=== PATIENT | female | born 1985 | race Caucasian/White ===

== ENCOUNTER 2020-01-19 09:19 | Emergency (ER) | payer MEDICAID ==
[~2020-01-19] VITALS: Ht 149.9 cm; Wt 80.3 kg
[2020-01-19 09:23] VITALS: BP 122/68
--- NOTE | 2020-01-19 09:30 | NUR ---
PT AMBULATED TO ER BED 12
--- NOTE | 2020-01-19 09:30 | NUR ---
34/F c/o suprapubic & left pelvic pain x 1 days and vaginal spotting x 1 day. , approx 5 weeks . States the pain is similar to the pain she's had before from left ovarian cyst. Crampy, 4/10 at this time, constant since it started this morning. Pt states she has never had vaginal spotting during which caused her to be concerned. [place] spots on toilet paper after wiping but no blood in toilet bowel. Has not had to use any pads. Hx- left ovarian cyst
--- NOTE | 2020-01-19 09:34 | NUR ---
rag production worker at bedside for blood draw.
--- NOTE | 2020-01-19 09:35 | NUR ---
urine sample handed to mannequin mounter
--- NOTE | 2020-01-19 09:36 | NUR ---
Dr. Lorenzo evaluating pt at bedside
--- NOTE | 2020-01-19 09:43 | NUR ---
U/S tech at bedside
[2020-01-19 09:47] LABS: BASOPHILS % (AUTO) 0.4 % (0.0-2.0); EOSINOPHILS # (AUTO) 0.1 K/uL (0-0.4); EOSINOPHILS % (AUTO) 0.8 % (0.0-4.0); HEMATOCRIT 36.6 % (36-48); HEMOGLOBIN 12.2 g/dL (12.0-16.0); LYMPHOCYTES # (AUTO) 1.8 K/uL (2.5-16.5); MEAN CORPUSCULAR HEMOGLOBIN 30 pg (27-31); MEAN CORPUSCULAR HGB CONC 33 g/dL (33-37); MEAN CORPUSCULAR VOLUME 89.3 fL (80-94); MONOCYTES # (AUTO) 0.3 K/uL (0.8-1.0); MONOCYTES % (AUTO) 5.1 % (1.7-9.3); NEUTROPHILS # (AUTO) 4.5 K/uL (1.8-7.7); NEUTROPHILS % (AUTO) 66.7 % (42.2-75.2); PLATELET COUNT (AUTO) 206 K/uL (140-450); RED CELL DISTRIBUTION WIDTH 14.5 % (11.6-13.7); WHITE BLOOD COUNT (AUTO) 6.8 K/uL (4.8-10.8)
[2020-01-19 10:04] LABS: ANION GAP 12.8 (8-16); CARBON DIOXIDE 26.4 mmol/L (21-32); CREATININE 0.6 mg/dL (0.6-1.3); POTASSIUM 4.2 mmol/L (3.5-5.1)
[2020-01-19 10:15] LABS: BILIRUBIN,URINE NEGATIVE (NEGATIVE); COLOR,URINE YELLOW (YELLOW); LEUKOCYTE ESTERASE ,URINE TRACE (NEGATIVE); NITRITE, URINE NEGATIVE (NEGATIVE); PH,URINE 5.5 (5.0-9.0); UGLUCOSE NEGATIVE (NEGATIVE)
[2020-01-19 10:18] LABS: APPEARANCE,URINE SLIGHTLY HAZY (CLEAR)
[2020-01-19 10:20] LABS: BLOOD, URINE 1+ (NEGATIVE); RBC,URINE 0-5 /HPF (0-5); WBC,URINE 0-5 /HPF (0-5)
[2020-01-19 10:38] VITALS: BP 118/65
== END 2020-01-19 10:38 | disposition home or self-care (01) ==
LOC: MED 09:19
DX: O20.8 Other hemorrhage in early pregnancy (principal); O23.40 Unspecified infection of urinary tract in pregnancy, unspecified trimester
CPT/HCPCS: 36415; 76801; 80048; 81001; 81025; 84702; 85025; 86900; 86901; 99284; Q0092

== ENCOUNTER 2020-04-29 17:08 | Emergency (ER) | payer MEDICAID ==
[~2020-04-29] VITALS: Ht 148.6 cm; Wt 83.5 kg
[2020-04-29 17:09] VITALS: BP 120/69
--- NOTE | 2020-04-29 18:04 | NUR ---
35 Y/O FEMALE INTERMITTENT SUPRAPUBIC PRESSURE, 5/10 DULL PRESSURE. NO VAGINAL BLEEDING, BUT VAGINAL DISCHARGE IS PRESENT. NO DYSURIA, FEVER, N/V. STATES URINARY FREQUENCY. 6 WEEKS , LMP 03/18/20 LINDA- NKA
[2020-04-29 19:24] LABS: APPEARANCE,URINE CLEAR (CLEAR); BILIRUBIN,URINE NEGATIVE (NEGATIVE); BLOOD, URINE NEGATIVE (NEGATIVE); COLOR,URINE YELLOW (YELLOW); LEUKOCYTE ESTERASE ,URINE NEGATIVE (NEGATIVE); NITRITE, URINE NEGATIVE (NEGATIVE); PH,URINE 7.5 (5.0-9.0); UGLUCOSE NEGATIVE (NEGATIVE)
--- NOTE | 2020-04-29 19:25 | NUR ---
RECIEVED REPORT FROM YUDITH MONTES. TRANSFER OF CARE AT THIS TIME.
--- NOTE | 2020-04-29 19:36 | NUR ---
PT AMBULATED TO BED 12 WITH STEADY GAIT FOR PELVIC EXAM
--- NOTE | 2020-04-29 19:50 | NUR ---
ASSISTED ERMD IN PELIC EXAM. PT TOLERATED WELL. WET MOUNT AND G/C SWABS COLLECTED AND SENT TO LAB.
[2020-04-29 21:14] VITALS: BP 121/69
--- NOTE | 2020-04-29 21:14 | NUR ---
Patient discharged with v/s stable. Written and verbal after care instructions given and explained. Patient verbalized understanding. Ambulatory with steady gait. All questions addressed prior to discharge. Advised to follow up with PMD.
[2020-05-03 06:09] LABS: CHLAMYDIA TRACHOMATIS AMP DNA Negative (Negative)
== END 2020-04-29 21:14 | disposition home or self-care (01) ==
LOC: MED 17:08
DX: O26.891 Other specified pregnancy related conditions, first trimester (principal); Z3A.01 Less than 8 weeks gestation of pregnancy
CPT/HCPCS: 36415; 81002; 81003; 87210; 87491; 99283; 99284